=== PATIENT | female | born 1950 | race Caucasian/White ===

== ENCOUNTER 2019-05-30 13:17 | Emergency (ER) | payer BC, OTHER ==
[2019-05-30 13:48] VITALS: BMI 33.3
--- NOTE | 2019-05-30 13:52 | PDOC ---
History of Present Illness - General Stated Complaint: Blood Pressure Problem Time Seen by Provider: 05/30/19 13:27 - History of Present Illness Initial Comments: 05/30/19 13:52 68F with pmh of htn and dm2 presents to the ED after episode of dizziness/ lightheadedness as she was walking outside her workplace's parking lot. She felt unstable and had to sit down, with some shortness of breath and EMS was called. Her BP was found to be low at 75 systolic, with normal HR and O2 sat. Rhythm strip was showing some rbbb. She was given 800cc of NS which resolved the dizziness. She has been asymptomatic every since. Denies feeling any chest pain during the episode, nausea, vomiting diarrhea, abdominal pain, no recent change in medication or diet. She reports often getting lightheaded when she stands up too fast. Past History - Past Medical History Allergies/Adverse Reactions: Allergies Allergy/AdvReac Type Severity Reaction Status Date / Time No Known Allergies Allergy Unverified 02/07/16 12:07 Review of Systems - Review of Systems Able to Perform ROS?: Yes Is the patient limited Nicaraguan proficient: No Constitutional: No: Symptoms Reported HEENTM: Yes: Blurred Vision (during the episode). No: Symptoms Reported Respiratory: Yes: Shortness of Breath (during episode) Cardiac (ROS): No: Symptoms Reported ABD/GI: No: Symptoms Reported : No: Symptoms Reported Musculoskeletal: Yes: Other (reports some discomfort under her right armpit) Integumentary: No: Symptoms Reported Neurological: Yes: See HPI, Dizziness. No: Headache, Numbness, Paresthesia, Seizure, Tingling, Tremors, Weakness, Ataxia Endocrine: Yes: Flushing. No: Excessive Sweating All Other Systems: Reviewed and Negative *Physical Exam - Physical Exam General Appearance: Yes: Appropriately Dressed, Obese. No: Apparent Distress HEENT: positive: EOMI, SUKHJINDER, Normal ENT Inspection Respiratory/Chest: positive: Chest Tender (mild, under R armpit), Lungs Clear, Normal Breath Sounds. negative: Respiratory Distress Cardiovascular: positive: Regular Rhythm, Regular Rate, S1, S2 Gastrointestinal/Abdominal: positive: Normal Bowel Sounds, Flat, Soft. negative : Tender Musculoskeletal: positive: Normal Inspection. negative: CVA Tenderness Extremity: positive: Normal Capillary Refill, Normal Inspection, Normal Range of Motion Integumentary: positive: Normal Color, Dry, Warm Neurologic: positive: Fully Oriented, Alert, Normal Mood/Affect, Normal Response , Motor Strength 5/5. negative: EOM Palsy, Facial Droop, Numbness, Sensory Deficit, Confused, Disoriented, Depressed Affect ED Treatment Course - LABORATORY CBC & Chemistry Diagram: 05/30/19 14:50 05/30/19 14:50 Medical Decision Making - Medical Decision Making 05/30/19 14:01 68F with htn and dm2 with episode of hypotension and associated dizziness. Differential including but not limited to: arrhythmia, CAD, vasovagal episode, orthostatic hypotension, posterior TIA, exogenous ingestion, hypotensive medication overdose. Low suspicion for exogenous etiology, this is possibly orthostatic as the patient reports feeling dizzy every tiem she stands up too fast, but will need EKG massimo to rule out acs/arrhythmia. LAbs, EKG and CXR pending. 05/30/19 14:38 EKG: Sinus rhythm with 1st degree AV block, LBBB, rate 78, NC 236, QRS 146, QT/ QTC 408/465 05/30/19 14:39 CXR: no evidence of acute pulmonary disease. 05/30/19 16:38 Elevated troponin at 2.71. Immediately gave patient aspirin and called her sales review clerk Dr. Jacy Lai ( [phone]) with whom i compared EKG, found that the LBBB was 1st degree block was seen in her last EKG. Agreed with recommendation to start heparin drip and transfer to [facility] for further management. PAtient was informed of her diagnosis of NSTEMI, admits that she's under a lot of stressors after the of her 3 months ago. Spoke to [facility] transfer center, faxed faced sheet. 05/30/19 16:42 Called back transfer center to inquire about status of transfer, waiting on a bed there. Patient reassessed, still comfortable. 05/30/19 20:35 Transfer center still waiting on a bed. Troponins repeat is now 19. Called back patient's Brilliandeer Looper and updated her. Said she will call the transfer center and she will call back. 05/30/19 21:37 Patient will go directly to [facility]. Waiting for transportation. *DC/Admit/Observation/Transfer Diagnosis at time of Disposition: NSTEMI (non-ST elevated myocardial infarction) - Discharge Dispostion Disposition: TRANSFER ACUTE CARE/OTHER HOSP Decision to Admit order: No - Referrals Referrals: Sean Weber MD [Primary Care Provider] - - Patient Instructions - Post Discharge Activity - Transfer to Acute Care Facility Receiving Facility: Other hosp. not listed ([facility]) Accepting Physician:: Dr. Lai
[2019-05-30 15:04] LABS: BASO % 0.4 % (0-2.0); EOS % 0.6 % (0-4.5); HEMOGLOBIN 10.3 GM/dL (10.7-15.3); LYMPH % 8.5 % (8-40); MCH 28.2 pg (25.7-33.7); MEAN PLT VOLUME 8.5 fl (7.5-11.1); MONO % 2.2 % (3.8-10.2); NEUT % 88.3 % (42.8-82.8); PLATELET COUNT 224 K/MM3 (134-434); RBC 3.64 M/mm3 (3.60-5.2); RDW 15.9 % (11.6-15.6)
[2019-05-30 15:39] LABS: ALBUMIN 3.2 g/dl (3.4-5.0); BILIRUBIN,TOTAL 0.2 mg/dL (0.2-1); BLOOD UREA NITROGEN 45.5 mg/dL (7-18); CALCIUM 8.6 mg/dL (8.5-10.1); CREATININE 1.4 mg/dL (0.55-1.3); POTASSIUM 5.5 mmol/L (3.5-5.1); TOT PROT 6.7 g/dl (6.4-8.2)
--- NOTE | 2019-05-30 15:43 | PDOC ---
Documentation entered by Maisha Ngo SCRIBE, acting as scribe for Janice Soto MD. Janice Soto MD: This documentation has been prepared by the Huber cantu Adrianna, SCRIBE, under my direction and personally reviewed by me in its entirety. I confirm that the documentation accurately reflects all work, treatment, procedures, and medical decision making performed by me. Attending Attestation - Resident Resident Name: Satya Robert - ED Attending Attestation I have performed the following: I have examined & evaluated the patient, The case was reviewed & discussed with the resident, I agree w/resident's findings & plan, Exceptions are as noted - HPI HPI: The patient is a 68 year old female, with a significant PMH of HTN and DMII, who presents to the ED for evaluation of dizziness and lightheadedness prior to arrival. Patient notes she was walking outside, when she suddenly felt dizzy and had to sit down. She endorses SOB at that time. Upon EMS arrival, her BP was at 75 systolic. She was given normal saline en route with relief of symptoms. She denies any acute complaints while in the ED. Allergies: NKA, NKDA Surgical History: None reported Social History: Denies EtOH, tobacco, or illicit drug use PCP: Dr. Weber - Physicial Exam PE: GENERAL: The patient is in no acute distress. ENT: Ears normal, nares patent, oropharynx clear without exudates. Moist mucous membranes. NECK: Normal range of motion, supple, no nuchal rigidity LUNGS: Breath sounds equal, clear to auscultation bilaterally. No wheezes, and no crackles. HEART: Regular rate and rhythm, normal S1 and S2 without murmur, rub or gallop. ABDOMEN: Soft, nontender, normoactive bowel sounds. No guarding, no rebound. No masses palpable. EXTREMITIES: Normal range of motion, no edema. NEUROLOGICAL: Cranial nerves II through XII grossly intact. Normal speech. No focal neurological deficits. SKIN: Warm, Dry, normal turgor, no rashes or lesions noted. - Critical Care Time Total Critical Care Time: 120 Critical Care Statement: The care of this patient involved high complexity decision making to prevent further life threatening deterioration of the patient 's condition and/or to evaluate & treat vital organ system(s) failure or risk of failure. 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) she noted a profound sense of dizziness She felt like she was No chest pain No shortness of breath or palpitations EKG - SR rate of 78 bpm, LBBB, 05/30/19 15:42 Laboratory Tests 05/30/19 05/30/19 14:50 14:50 WBC 9.0 Hgb 10.3 L Hct 32.0 L Plt Count 224 Sodium 139 Potassium 5.5 H Chloride 110 H Anion Gap 7 L BUN 45.5 H Creatinine 1.4 H Random Glucose 244 H Will call pt physical instructor as we have no prior EKGs 05/30/19 15:48 Laboratory Tests 05/30/19 14:50 Troponin I 2.71 H* I have added on CK and CK-MB Pt reports no chest pain 05/30/19 15:51 Call placed to pt physical instructor She confirms a prior history of LBBB She would like this patient transferred to [place] Multiple calls placed to [place] for transportation to their CCU We are repeatedly told that they are awaiting a bed in the CCU and can give us not time frame Pt remains chest pain free, no shortness of breath or dizziness Plan: Repeat trop (4 hours trop) Transfer to [facility] if there is still no bed at [place] Continue Heparin Drip Pt signed out to Dr. Panda
[2019-05-30] MEDS ORDERED: ASPIRIN 81 MG CHEWABLE TABLETS PO ONE (15:47)
[2019-05-30] MEDS ORDERED: HEPARIN NA (PORCINE) 5,000 UNITS/ML 1ML VIAL IVPUSH PRN ×2 (16:22)
[2019-05-30] MEDS ORDERED: HEPARIN INFUSION - 25,000 UNITS/500 ML INFUS.BAG IVPB SCH (16:30)
[2019-05-30] MEDS ORDERED: ASPIRIN 81 MG CHEWABLE TABLETS ONE (16:32)
[2019-05-30] MEDS ORDERED: HEPARIN INFUSION - 25,000 UNITS/500 ML INFUS.BAG IVPB ONE (16:32)
[2019-05-30 16:57] LABS: EPI CELLS 1.3 /HPF (0-5/HPF); HYALINE CASTS 4 /lpf (0-8); PH,URINE 5.5 (5.0-8.0); URINE APPEARANCE CLEAR; URINE BACTERIA 1.4 /hpf (NEGATIVE); URINE BILIRUBIN NEGATIVE (NEGATIVE); URINE COLOR YELLOW; URINE GLUCOSE (UA) NEGATIVE (NEGATIVE); URINE KETONE NEGATIVE (NEGATIVE); URINE LEUK ESTERASE NEGATIVE (NEGATIVE); URINE NITRITE NEGATIVE (NEGATIVE); URINE PROTEIN 1+ (NEGATIVE); URINE RBC 4 /hpf (0-4); URINE UROBILINOGEN 0.2 mg/dL (0.2-1.0); URINE WBC 0 /hpf (0-5)
[2019-05-30 22:09] VITALS: BP 137/80; PULSE 76; TEMP 98.1
--- NOTE | 2019-05-31 14:07 | EKG ---
Test Reason : Blood Pressure : / mmHG Vent. Rate : 071 BPM Atrial Rate : 071 BPM P-R Int : 232 ms QRS Dur : 144 ms QT Int : 436 ms P-R-T Axes : 057 -33 128 degrees QTc Int : 473 ms SINUS RHYTHM WITH 1ST DEGREE A-V BLOCK LEFT AXIS DEVIATION LEFT BUNDLE BRANCH BLOCK ABNORMAL ECG WHEN COMPARED WITH ECG OF 30-MAY-2019 14:00, T WAVE INVERSION MORE EVIDENT IN ANTEROLATERAL LEADS Confirmed by SHARA BURR, RADHA ([id number]) on 05/31/2019 2:06:42 PM Referred By: Confirmed By:RADHA OLMEDO MD
--- NOTE | 2019-05-31 14:09 | EKG ---
Test Reason : Blood Pressure : / mmHG Vent. Rate : 078 BPM Atrial Rate : 078 BPM P-R Int : 236 ms QRS Dur : 146 ms QT Int : 408 ms P-R-T Axes : 056 -26 113 degrees QTc Int : 465 ms SINUS RHYTHM WITH 1ST DEGREE A-V BLOCK LEFT BUNDLE BRANCH BLOCK ABNORMAL ECG WHEN COMPARED WITH ECG OF 05-FEB-2006 16:09, VA INTERVAL HAS INCREASED LEFT BUNDLE BRANCH BLOCK IS NOW PRESENT Confirmed by RADHA OLMEDO MD ([id number]) on 05/31/2019 2:09:05 PM Referred By: Confirmed By:RADHA OLMEDO MD
== END 2019-05-30 22:57 | disposition short-term general hospital (02) ==
LOC: JER 13:17
PROC: 3E033GC Introduction of Other Therapeutic Substance into Peripheral Vein, Percutaneous Approach (ICD-10-PCS; principal; 2019-05-30)
DX: I21.4 Non-ST elevation (NSTEMI) myocardial infarction (principal); I10 Essential (primary) hypertension; E11.9 Type 2 diabetes mellitus without complications
CPT/HCPCS: 36415; 71046-TC-FY; 80053; 81003; 82550; 82553; 84443; 84484; 85025; 87086; 93005; 93010; 99284-25; J1644